=== PATIENT | male | born 1965 | race Caucasian/White ===

== ENCOUNTER 2023-07-20 09:27 | Outpatient (AMB) | payer OTHER, SELFPAY ==
[2023-07-20 09:35] VITALS: BP 138/80; PULSE 60
--- NOTE | 2023-07-20 09:35 | HO.NEPHOV ---
HPI HPI Comments History of Present Illness Details I had the privilege of seeing Major in follow-up of his hypertension. His blood pressure has been well controlled on current medication regimen. He has lost some weight and his blood sugar is very good. He remains on metformin. He does not take any nonsteroidal anti-inflammatory medications. He tries to remain well hydrated. He is on lisinopril and metoprolol. He denies any dizziness, pedal edema, chest pain, shortness of breath, paroxysmal nocturnal dyspnea, orthopnea or urinary symptoms. He feels well otherwise. [facility] Medical History (Updated 07/24/23 @ 11:46 by Sy Delgado MD) Migraines Hypertension Family History (Updated 07/20/23 @ 09:42 by Estrellita Reagan MA) Mother Hypertension Social History (Updated 07/20/23 @ 09:41 by Estrellita Reagan MA) Alcohol intake: former Patient Tobacco Use Status: Former Tobacco user Vital Signs 07/20/23 09:35 Height 5 ft 10 in BP 138/80 Blood Pressure Location Lt brachial Position Sitting Pulse 60 Pulse Source Pulse Oximeter Physical Exam Vital Signs: Last Vital Signs Pulse 60 07/20/23 09:35 BP 138/80 07/20/23 09:35 Const General: comfortable and no acute distress Orientation/consciousness: patient oriented x3 HEENT Head: Yes normocephalic Mouth: Normal oral and palatal mucosa present Eyes EOM: EOMs intact bilaterally Neck Neck: Yes supple Resp Auscultation: clear to auscultation bilaterally Cardio Jugular venous distension: no JVD Rate: regular rate GI Palpation (GI): Soft to palpation Auscultation: normal bowel sounds General: Yes no CVA tenderness Back/Spine/Pelvis Back: no CVA tenderness Skin General skin exam: no rashes or lesions noted Neuro General: patient oriented x3 and moves all extremities Extrem General: Yes no pedal edema Assessment & Plan Assessment & Plan (1) Hypertension: Code(s): I10 - Essential (primary) hypertension Qualifiers: Hypertension type: primary hypertension Qualified Code(s): I10 - Essential (primary) hypertension Plan Major has hypertension for a while and currently is on metoprolol and lisinopril. He is a diabetic. His blood sugars are fairly well controlled on metformin. He has lost some weight. He remains well hydrated and avoids nonsteroidal anti-inflammatory medications. I ordered follow-up lab work. I shall try to increase his lisinopril and wean him off metoprolol if at all possible. He is not known to have any retinopathy or proteinuria. His volume status is optimal. He should be on a low-sodium diet. He is on statins. I did not make any other changes at this time but had a long conversation about future monitoring and further management strategies. All questions were answered. Time spent retrieving data, patient encounter and recommendation 22 minutes. Orders: Orders Creatinine 07/20/23 I10 - Essential (primary) hypertension Electrolytes 07/20/23 I10 - Essential (primary) hypertension Blood Urea Nitrogen 07/20/23 I10 - Essential (primary) hypertension Calcium 07/20/23 I10 - Essential (primary) hypertension Protein Creatinine Ratio, Ur 07/20/23 I10 - Essential (primary) hypertension Coding Level of Care Code Est Pt Level 3 (15658) Diagnoses Primary hypertension I10 Hypertension type: primary hypertension
== END 2023-07-20 10:12 | disposition home or self-care (01) ==
PROVIDERS: PCP Family Medicine; Visit Provider Internal Medicine Nephrology
DX: I10 Essential (primary) hypertension (principal); E11.9 Type 2 diabetes mellitus without complications; Z79.84 Long term (current) use of oral hypoglycemic drugs
CPT/HCPCS: 99213

== ENCOUNTER → 2023-07-20 09:27 | Outpatient (BNVA) | payer OTHER, SELFPAY | PROVIDERS: PCP Family Medicine; Visit Provider Internal Medicine Nephrology ==

== ENCOUNTER 2023-08-28 10:19 | Outpatient (AMB) | payer BC, SELFPAY ==
[2023-08-28 10:32] VITALS: BP 130/70; PULSE 64; O2SAT 98; BMI 25.5
--- NOTE | 2023-08-28 10:32 | HO.NEPHOV ---
HPI HPI Comments History of Present Illness Details I had the privilege of seeing Major in follow-up of his hypertension. His blood pressure has been well controlled on current medication regimen. He has lost some weight and his blood sugar is very good. He remains on metformin. He does not take any nonsteroidal anti-inflammatory medications. He tries to remain well hydrated. He is on lisinopril and metoprolol. He denies any dizziness, pedal edema, chest pain, shortness of breath, paroxysmal nocturnal dyspnea, orthopnea or urinary symptoms. He feels well otherwise [facility] Medical History (Updated 07/24/23 @ 11:46 by Sy Delgado MD) Migraines Hypertension Surgical History (Updated 08/28/23 @ 10:37 by Estrellita Reagan MA) History of shoulder surgery History of back surgery Family History Mother Hypertension Social History Alcohol intake: former Patient Tobacco Use Status: Former Tobacco user Vital Signs 08/28/23 10:32 Height 5 ft 10 in Weight 177 lb 8 oz BMI 25.5 BP 130/70 Blood Pressure Location Rt brachial Position Sitting Pulse 64 Pulse Oximetry (%) 98 Oxygen Delivery Method Room Air Physical Exam Vital Signs: Last Vital Signs Pulse 64 08/28/23 10:32 BP 130/70 08/28/23 10:32 Pulse Ox 98 08/28/23 10:32 Oxygen Delivery Method Room Air 08/28/23 10:32 BMI result Body Mass Index 25.5 Const General: comfortable and no acute distress Orientation/consciousness: patient oriented x3 HEENT Head: Yes normocephalic Mouth: Normal oral and palatal mucosa present Eyes EOM: EOMs intact bilaterally Neck Neck: Yes supple Resp Auscultation: clear to auscultation bilaterally Cardio Jugular venous distension: no JVD Rate: regular rate GI Palpation (GI): Soft to palpation Auscultation: normal bowel sounds General: Yes no CVA tenderness Back/Spine/Pelvis Back: no CVA tenderness Skin General skin exam: no rashes or lesions noted Neuro General: patient oriented x3 and moves all extremities Extrem General: Yes no pedal edema Assessment & Plan Assessment & Plan (1) Hypertension: Code(s): I10 - Essential (primary) hypertension Qualifiers: Hypertension type: primary hypertension Qualified Code(s): I10 - Essential (primary) hypertension Plan Major has hypertension for a while and currently is on metoprolol and lisinopril. He is a diabetic. His blood sugars are fairly well controlled on metformin. He has lost some weight. He remains well hydrated and avoids nonsteroidal anti-inflammatory medications. I increased his lisinopril to 10 mg and discontinued his metoprolol . He is not known to have any retinopathy or proteinuria. His volume status is optimal. He should be on a low-sodium diet. He is on statins. I did not make any other changes at this time but had a long conversation about future monitoring and further management strategies. All questions were answered. Orders: Orders Blood Urea Nitrogen Today I10 - Essential (primary) hypertension Creatinine Today I10 - Essential (primary) hypertension Protein Creatinine Ratio, Ur Today I10 - Essential (primary) hypertension Electrolytes Today I10 - Essential (primary) hypertension Calcium Today I10 - Essential (primary) hypertension Medications: New lisinopril 10 mg PO DAILY 90 tabs 3RF Coding Level of Care Code Est Pt Level 3 (48877) Diagnoses Primary hypertension I10 Hypertension type: primary hypertension Results Reviewed Nephrology Results: No Data to Display
== END 2023-08-28 11:02 | disposition home or self-care (01) ==
PROVIDERS: PCP Family Medicine; Visit Provider Internal Medicine Nephrology
DX: I10 Essential (primary) hypertension (principal)
CPT/HCPCS: 99213

== ENCOUNTER → 2023-08-28 10:19 | Outpatient (BNVA) | payer BC, SELFPAY | PROVIDERS: PCP Family Medicine; Visit Provider Internal Medicine Nephrology ==

== ENCOUNTER 2023-10-24 13:02 | Outpatient (REF) | payer BC, SELFPAY ==
[2023-10-24 18:34] LABS: Anion Gap 11 (12-20); Blood Urea Nitrogen 21 mg/dL (9-16); Carbon Dioxide 23 mmol/L (22-29); Chloride 109 mmol/L (96-108); Estimated Glomerular Filt Rate > 60; Potassium 4.8 mmol/L (3.3-5.1); Sodium 138 mmol/L (135-145)
[2023-10-24 18:40] LABS: Creatinine Urine 177.46 mg/dL; Protein/Creatinine Ratio, Ur 0.06 (<0.2); Total Protein Urine Random 10 mg/dL (<12)
== END 2023-10-24 13:03 | disposition home or self-care (01) ==
LOC: HO.HKASLDS 13:02
PROVIDERS: Visit Provider Internal Medicine Nephrology
DX: I10 Essential (primary) hypertension (principal)
CPT/HCPCS: 36415; 80051; 82310; 82565; 82570; 84156; 84520

== ENCOUNTER 2023-10-30 10:24 | Outpatient (AMB) | payer BC, SELFPAY ==
[2023-10-30 10:32] VITALS: BP 122/80; PULSE 83; O2SAT 97; BMI 25.2
--- NOTE | 2023-10-30 10:32 | HO.NEPHOV_ITS ---
HPI HPI Comments History of Present Illness Details I had the privilege of seeing Major in follow-up of his hypertension. His blood pressure has been well controlled on current medication regimen. He has lost some weight and his blood sugar is very good. He remains on metformin. He does not take any nonsteroidal anti-inflammatory medications. He tries to remain well hydrated. He denies any dizziness, pedal edema, paroxysmal nocturnal dyspnea, orthopnea or urinary symptoms. He feels well otherwise [facility] Medical History (Updated 07/24/23 @ 11:46 by Sy Delgado MD) Migraines Hypertension Surgical History History of shoulder surgery History of back surgery Family History Mother Hypertension Social History Alcohol intake: former Patient Tobacco Use Status: Former Tobacco user Vital Signs 10/30/23 10:32 Height 5 ft 10 in Weight 175 lb 8 oz BMI 25.2 BP 122/80 Blood Pressure Location Lt brachial Position Sitting Pulse 83 Pulse Source Pulse Oximeter Pulse Oximetry (%) 97 Oxygen Delivery Method Room Air Physical Exam Vital Signs: Last Vital Signs Pulse 83 10/30/23 10:32 BP 122/80 10/30/23 10:32 Pulse Ox 97 10/30/23 10:32 Oxygen Delivery Method Room Air 10/30/23 10:32 BMI result Body Mass Index 25.2 Const General: comfortable and no acute distress Orientation/consciousness: patient oriented x3 HEENT Head: Yes normocephalic Mouth: Normal oral and palatal mucosa present Eyes EOM: EOMs intact bilaterally Neck Neck: Yes supple Resp Auscultation: clear to auscultation bilaterally Cardio Jugular venous distension: no JVD Rate: regular rate GI Palpation (GI): Soft to palpation Auscultation: normal bowel sounds General: Yes no CVA tenderness Back/Spine/Pelvis Back: no CVA tenderness Skin General skin exam: no rashes or lesions noted Neuro General: patient oriented x3 and moves all extremities Extrem General: Yes no pedal edema Assessment & Plan Assessment & Plan (1) Hypertension: Code(s): I10 - Essential (primary) hypertension Qualifiers: Hypertension type: primary hypertension Qualified Code(s): I10 - Essential (primary) hypertension Plan Major has hypertension for a while . He is a diabetic. His blood sugars are fairly well controlled on metformin. He has lost some weight. He remains well hydrated and avoids nonsteroidal anti-inflammatory medications. He could continue lisinopril 10 mg . He is not known to have any retinopathy or proteinuria. His volume status is optimal. He should be on a low-sodium diet. He is on statins. I did not make any other changes at this time but had a long conversation about future monitoring and further management strategies. All questions were answered. Orders: Orders Blood Urea Nitrogen Today I10 - Essential (primary) hypertension Creatinine Today I10 - Essential (primary) hypertension Electrolytes Today I10 - Essential (primary) hypertension Medications: New lisinopril 10 mg PO DAILY 90 days 90 tabs 3RF Coding Level of Care Code Est Pt Level 4 (45901) Diagnoses Primary hypertension I10 Hypertension type: primary hypertension Results Reviewed Nephrology Results: Sodium 138 mmol/L (135-145) 10/24/23 Potassium 4.8 mmol/L (3.3-5.1) 10/24/23 Chloride 109 mmol/L (96-108) H 10/24/23 Carbon Dioxide 23 mmol/L (22-29) 10/24/23 BUN 21 mg/dL (9-16) H 10/24/23 Creatinine 1.00 mg/dL (0.5-1.4) 10/24/23 Calcium 10.0 mg/dL (8.4-10.2) 10/24/23 Urine Creatinine 177.46 mg/dL 10/24/23 Protein/Creatinin Ratio 0.06 (<0.2) 10/24/23
== END 2023-10-30 10:57 | disposition home or self-care (01) ==
PROVIDERS: PCP Family Medicine; Visit Provider Internal Medicine Nephrology
DX: I10 Essential (primary) hypertension (principal)
CPT/HCPCS: 99214

== ENCOUNTER → 2023-10-30 10:24 | Outpatient (BNVA) | payer BC, SELFPAY | PROVIDERS: PCP Family Medicine; Visit Provider Internal Medicine Nephrology ==

== ENCOUNTER 2024-04-15 09:25 | Outpatient (AMB) | payer BC, SELFPAY ==
--- NOTE | 2024-04-15 09:36 | HO.NEPHOV_ITS ---
Vital Signs 04/15/24 09:37 Height 5 ft 10 in Weight 174 lb 8 oz BMI 25.0 BP 122/72 Blood Pressure Location Lt brachial Position Sitting Pulse 66 Pulse Source Pulse Oximeter Pulse Oximetry (%) 97 Oxygen Delivery Method Room Air Intake Visit Reasons: 6 mo fu w labs- CKD / LVM [employer] Buyer Required: No Accompanied by: Self / Same As Patient Allergies No Known Allergies Allergy (Verified 04/15/24 09:38) HPI Comments Details: I had the privilege of seeing Major in follow-up of his hypertension. His blood pressure has been well controlled on current medication regimen. He has lost some weight and his blood sugar is very good. He remains on metformin. He does not take any nonsteroidal anti-inflammatory medications. He tries to remain well hydrated. He denies any dizziness, pedal edema, paroxysmal nocturnal dyspnea, orthopnea or urinary symptoms. He feels well otherwise [facility] Medical History (Updated 07/24/23 @ 11:46 by Sy Delgado MD) Migraines Hypertension Surgical History History of shoulder surgery History of back surgery Family History Mother Hypertension Social History Alcohol intake: former Patient Tobacco Use Status: Former Tobacco user Physical Exam Vital Signs: Last Vital Signs Pulse 66 04/15/24 09:37 BP 122/72 04/15/24 09:37 Pulse Ox 97 04/15/24 09:37 Oxygen Delivery Method Room Air 04/15/24 09:37 BMI result Body Mass Index 25.0 Const General: comfortable and no acute distress Orientation/consciousness: patient oriented x3 HEENT Head: Yes normocephalic Mouth: Normal oral and palatal mucosa present Eyes EOM: EOMs intact bilaterally Neck Neck: Yes supple Resp Auscultation: clear to auscultation bilaterally Cardio Jugular venous distension: no JVD Rate: regular rate GI Palpation (GI): Soft to palpation Auscultation: normal bowel sounds General: Yes no CVA tenderness Back/Spine/Pelvis Back: no CVA tenderness Skin General skin exam: no rashes or lesions noted Neuro General: patient oriented x3 and moves all extremities Extrem General: Yes no pedal edema Results Reviewed Nephrology Results: Sodium 138 mmol/L (135-145) 10/24/23 Potassium 4.8 mmol/L (3.3-5.1) 10/24/23 Chloride 109 mmol/L (96-108) H 10/24/23 Carbon Dioxide 23 mmol/L (22-29) 10/24/23 BUN 21 mg/dL (9-16) H 10/24/23 Creatinine 1.00 mg/dL (0.5-1.4) 10/24/23 Calcium 10.0 mg/dL (8.4-10.2) 10/24/23 Urine Creatinine 177.46 mg/dL 10/24/23 Protein/Creatinin Ratio 0.06 (<0.2) 10/24/23 Assessment & Plan Assessment & Plan (1) Hypertension: Code(s): I10 - Essential (primary) hypertension Category: Medical Qualifiers: Hypertension type: primary hypertension Qualified Code(s): I10 - Essential (primary) hypertension Plan Major has hypertension . He is a diabetic. His blood sugars are fairly well controlled on metformin. He has lost some weight. He remains well hydrated and avoids nonsteroidal anti-inflammatory medications. He could continue lisinopril 10 mg . He is not known to have any retinopathy or proteinuria. His volume status is optimal. He should be on a low-sodium diet. He is on statins. I did not make any other changes at this time but had a long conversation about future monitoring and further management strategies. All questions were answered. Orders: Orders Creatinine Today I10 - Essential (primary) hypertension Blood Urea Nitrogen Today I10 - Essential (primary) hypertension Electrolytes Today I10 - Essential (primary) hypertension Protein Creatinine Ratio, Ur Today I10 - Essential (primary) hypertension Coding Level of Care Code Est Pt Level 4 (63950) Diagnoses Primary hypertension I10 Hypertension type: primary hypertension
[2024-04-15 09:37] VITALS: BP 122/72; PULSE 66; O2SAT 97; BMI 25.0
== END 2024-04-15 10:06 | disposition home or self-care (01) ==
PROVIDERS: PCP Family Medicine; Visit Provider Internal Medicine Nephrology
DX: I10 Essential (primary) hypertension (principal)
CPT/HCPCS: 99214

== ENCOUNTER → 2024-04-15 09:25 | Outpatient (BNVA) | payer BC, SELFPAY | PROVIDERS: PCP Family Medicine; Visit Provider Internal Medicine Nephrology ==

== ENCOUNTER 2025-01-29 09:15 | Outpatient (AMB) | payer BC, SELFPAY ==
--- OUTSIDE RECORDS SUMMARY | 2025-01-29 09:28 | XMS_ITS ---
Author Organization [facility] [place] Address [address] [facility] [place] [address] Care Team Providers Care Narcotics And Vice Detective Name Role Phone Xander Zavala Primary Care Provider Aditi Santillan Unavailable [phone] Allergies Allergen (clinical drug ingredient) Drug/Non Drug Allergy documented on EMR Reaction Allergy Type Onset Date Status Bee Sting Unknown Allergy Active REASON FOR VISIT Last Visit PCP 04/2024, At Risk Footcare, Skin Problem Medications Medication SIG (Take, Route, Frequency, Duration) Notes Start Date End Date Status metFORMIN HCl 500 MG 1 tablet with a onel l Orally Once a day Active Metoprolol Succinate 25 MG 1 capsule Orally Once a day Not-Taking Lisinopril 5 MG 1 tablet Orally Once a day Active Atorvastatin Calcium 20 MG 1 tablet Orally Once a day Active Ciclopirox Olamine 0.77 % 1 application Externally Twice a day to feet including between the toes for 30 days Active Social History Tobacco Use: Social History Observation Description Date Details (start date - stop date) Former Smoker NA - NA Tobacco Use/Smoking Question Answer Notes Are you a: former smoker Additional Findings: Tobacco Non-User Current no n-smoker Alcohol Screen Question Answer Notes Did you have a drink containing alcohol in the p ast year? No Points 0 Interpretation Negative Tobacco use other than smoking: Question Answer Notes Are you an other tobacco user? No Vital Signs Height 5ft 10 in in 05/22/2024 Weight 175 lbs 05/22/2024 BMI 25.11 kg/m2 05/22/2024 [facility]counters [facility] [address] [facility] Aditi Lopez Type 2 diabetes mellitus without complication, without long-term current use of insulin E11.9 ; Tinea pedis of both feet B35.3 ; Hallux valgus (acquired), left foot M20.12 and Hallux valgus (acquired), right foot M20.11 Assessments Encounter Date Diagnosis (ICD Code) Assessment Notes Treatment Notes Treatment Clinical Notes Section Notes 05/22/2024 Type 2 diabetes mellitus without complication, without long-term current use of insulin (ICD-10 - E11.9) 05/22/2024 Tinea pedis of both feet (ICD-10 - B35.3) 05/22/2024 Hallux valgus (acquired), left foot (ICD-10 - M20.12) 05/22/2024 Hallux valgus (acquired), right foot (ICD-10 - M20.11) Plan Of Treatment Medication Medication Name Sig Start Date Stop Date Notes Ciclopirox Olamine 0.77 % 1 application Externally Twice a day to feet including between the toes for 30 days Next Appt Details Follow Up: 1 Year, Reason: Provider Name:Aditi wallis, 05/21/2025 09:00:00 AM, [address] [place], [address], Progress Notes * Anthony BENITEZOB: 6 (58 yo M)Acc No.[id number]:05/22/2024 Progress Note Patient:?Major BENITEZ Provider:?Aditi Lopez DPM :1965???Age:58 Y???Sex:Male Avni e:05/22/2024 Address:[address] [place], [place] [id number] Pcp:Xander Zavala Subjective: * Chief Complaints: * ???Last Visit PCP t R isk FootcareSkin Problem * HPI: ???At Risk footcare:?Pt States Last PCP Visit:?Date?04/22/2024 ???Skin problems:?Nature:?scaling , redness.?Location:?B/L .?Course:?worse.?Treatments:?Pt states he picks at feet.? * ROS:?General/Constitutional:?Nausea?denies, denies.?Vomiting?denies, denies.?Hunger Thirst?denies, denies.?Loss appetite?denies, denies.?Chills?denies, denies.?Fatigue?denies, denies.?Fever?denies, denies.?Night Sweats denies, denies.?Unexplained weight loss?denies, denies.?Unexplained weight gain?denies, denies.?HEENTM:?Dentures?denies, denies.?Dizziness?denies, denies.?Glasses/contacts?denies, denies.?Retinopathy?denies, denies.?Blurred/double vision?denies, denies.?TMJ?denies, denies.?Discharge/drainage?denies, denies.?Implants?denies, denies.?Sore throat?denies, denies.?Dental implants?admits, admits.?Hard of hearing ?denies, denies.?Difficulty chewing/swallowing/speaking?denies, denies.?Nose bleeds?denies, denies.?Sore mouth?denies, denies.?Respiratory:?On Oxygen?denies, denies.?Pneumonia/pleurisy?denies, denies.?Bronchitis?denies, denies.?Emphysema?denies, denies.?Coughing?denies, denies.?Cough blood?denies, denies.?Shortness of breath?denies, denies.?Wheezing?denies, denies.?Cardiovascular:?Pacemaker?denies, denies.?MVP?denies, denies.?WPW?denies, denies.?CHF?denies, denies.?Heart attack?denies, denies.?Septal defect?denies, denies.?Rapid beat?denies, denies.?Chest pain ?denies, denies.?Atrial Fib.?denies, denies.?Murmur/Palpitations?denies, denies.?Gastrointestinal:?Hemorrhoids?denies, denies.?Stomach/Abdominal pain?denies, denies.?Dark blood stool?denies, denies.?Irritable bowel ?denies, denies.?Constipation?denies, denies.?Diarrhea?denies, denies.?Hematology:?Swelling?denies, denies.?Clots?denies, denies.?Varicose Veins?denies, denies.?Bruising?denies, denies.?Bleeding problem?denies, denies.?Genitourinary:?Blood urine?denies, denies.?Frequent/Painfu/urination/bladder control?denies, denies.?Kidney stones?denies, admits.?Infection (UTI)?denies, denies.?Nephropathy?denies, denies.?sex trans dis (STD)?denies, denies.?Prostate?denies, denies.?Musculoskeletal:?Hammertoes?denies, denies.?Bunions?denies, denies.?Back Pain?denies, denies.?Muscle Cramps/ Resting?denies, denies.?Muscle cramps / walking?denies, denies.?Generalized aches and pains?admits, admits.?Weakness?admits, admits.?Integ.:?Chung?denies, denies.?Scars?denies, denies.?Corns/calluses?admits, denies.?Ingrown nails?denies, denies.?Painful nails?denies, denies.?Open Sores?denies, denies.?Rashes?denies, denies.?Neurologic:?Difficulty sleeping?admits, admits.?Brain disorder?denies, denies.?Numbness?denies, admits.?Balance trouble?denies, denies.?Confusion?denies, denies.?Fainting/blackouts?denies, denies.?Tingling?admits, admits.?Tremors?denies, denies.? * Medical History:? * Surgical History:?shoulder s urgery back surgery * Hospitalization/Major Diagno stic Procedure:?[facility] ER 08/2023 * Family History:?Mother: christen gracia, foot problems, high blood pressure, poor circulation, diagnosed with Diabetic - NIDDM.?Father: .?Spouse: alive.? * Social History:?Tobacco Use:?Tobacco Use/Smoking?Are you a:?former smoker ?Additional Findings: Tobacco Non-User?Current non-smoker ?Tobacco use other than smoking?Are you an other tobacco user??No ???Drugs/Alcohol:?Drugs?Have you used drugs other than those for medical reasons in the past 12 months??No ?Alcohol Screen?Did you have a drink containing alcohol in the past year??No ?Points?0 ?Interpretation?Negative ???Miscellaneous:?Caffeine: yes, frequency: 3-4 12 oz coffee. ?Exercise: surfing, golfing. ?Marital status: . 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 * Medications:?TakingAtorvasta tin Calcium 20 MG Tablet 1 tablet Orally Once a day Lisinopril 5 MG Tablet 1 tablet Orally Once a day metFORMIN HCl 500 MG Tablet 1 tablet with a meal Orally Once a day Taking Atorvastatin Calcium 20 MG Tablet 1 tablet Orally Once a day Taking Lisinopril 5 MG Tablet 1 tablet Orally Once a day Taking metFORMIN HCl 500 MG Tablet 1 tablet with a meal Orally Once a day Not-Taking/PRNMetoprolol Succinate 25 MG Capsule ER 24 Hour Sprinkle 1 capsule Orally Once a day Medication List reviewed and reconciled with the patientNot- Taking/PRN Metoprolol Succinate 25 MG Capsule ER 24 Hour Sprinkle 1 capsule Orally Once a day Medication List reviewed and reconciled with the patient * Allergies:?Bee Stingyes[Salomon rgies Verified] Objective: * Vitals:?Ht:5ft 10 in, Wt:175 , BMI:25.11, Shoe size:10, BS:Doesn't test, Ht-cm: 177.8 cm, Wt-k.38 kg. * ???Past Orders: ???Lab:HEMOGLOBIN A1C (GLYCO HEMOGLOBIN) (Order Date - 04/21/2024) (Collection Date & Time - 04/21/2024 09:07 AM) ? Value Reference Range ?HEMOGLOBIN A1C % (HH) 6.5 * Examination: ???Ophthalmology Referral: ?DIABETES EYE EXAM?Procedure Performed:?Yes ?Date of Exam Performed?12/25/2023 ?Diabetic Retinopathy Screening:?Yes 2023 ?Findings of Diabetic Eye Exam:?no retinopathy?Neurological: ?SENSORY:?Neurological exam reveals intact sensorium, pain sensation normal, vibration sensation intact, pinprick sensation is normal in the lower extremities, Pt denies, anesthesia, burning, paresthesia, tingling, B/L.?Dermatologic: ?SKIN FINDINGS:?? Skin shows sign(s) of, erythema, scaling, in a moccasin fashion, no fissure(s) present, B/L, scabs from skin peeling, no open wounds or signs of infection.?Vascular: ?DP PULSES (B):?3/4, B/L.?PT PULSES (B):?3/4, B/L.?CAPILLARY FILL TIME:?immediate, all digits, B/L.?TROPHIC CONDITION-TEXTURE/ELASTICITY/TURGOR/HAIR GROWTH (B):?normal, B/L.?TEMPERTURE GRADIENT (C):?warm to cool, proximal to distal, B/L.?PIGMENTATION:?normal, B/L.?EDEMA (C):?absent, B/L.?General Examination: ?GENERAL APPEARANCE:?Reveals a pleasant, alert, well-nourished, well- developed, well hydrated individual, who demonstrates proper attention to hygiene/body habitus, and is in no acute distress, Pt serves as own?historian for office visit today.?ORIENTED:?person, place, and time.?FOOT EXAM:?Lower Extremity Neurological Exam performed:?Yes ?Visual exam of foot performed:?Yes ?Date?05/22/2024 ?Footwear Evaluation?Footwear Evaluation performed:?Yes?Orthopedic: ?MUSCLE STRENGTH:?5/5 all groups in a symmetrical fashion , B/L.?BUNION:? Dorso-Medially prominent 1st MPJ, B/L, Lateral tracking 1st MPJ reducible.?FOOTWEAR:?fair condition.? Assessment: * Assessment: 1.?Type 2 diabetes mellitus without complication, without long-term current use of insulin - E11.9???Specify :Chronic problem, Stable (1=3,2=4)???2.?Tinea pedis of both feet - B35.3 (Primary)???Specify :Acute problem, Uncomplicated (3),Rx drug management (4)???3.?Hallux valgus (acquired), left foot - M20.12???4.?Hallux valgus (acquired), right foot - M20.11??? Plan: * Treatment: * Procedure Codes:? * Preventive Medicine:? ??Counseling:?Tobacco use:?.?Discussion:?-13: Office or other outpatient visit for the evaluation and management of an established patient, which required a medically appropriate history and/or examination and LOW level of DECISION MAKING for: 1 STABLE ACUTE UNCOMPLICATED PROBLEM, 2 OR MORE MINOR PROBLEMS, OR 1 STABLE CHRONIC PROBLEM, THAT POSE(S) A LOW RISK FOR MORBIDITY/MORTALITY. The visit on the day of the encounter encompassed interpreting the data and educating the patient as to the nature of their condition, treatment options available according to their individual PMH, meds, allergies, and overall health/living conditions, as well as any potential risks or complications that may occur from a failure to adhere to, and participate in, the recommended course of therapy. The discussion included a complete verbal, and/or written explanation of the examination results, any x-rays taken, the proposed diagnosis, and outline of the treatment plan. A schedule for future care needs was also explained. The patient verbalized an understanding of the instructions at this time and agreed to be an active participant in their treatment. If the patient should think of any questions or concerns after the visit, I have encouraged the patient to call the office.?Diabetic Footcare:?The patient was advised against future self nail/callus care due to inherent risks for infection, loss of limb/life given diabetes.?Digital Treatment:?HV - I explained to the patient the risks/benefits of all the different treatment options for their pain including: No treatment at all, Rest, Ice, New/supportive/wider/deeper Shoegear, Digital Padding/Strapping/Taping/Bracing/Gel protective sleeves, Foot/Ankle AFO Bracing, Stretching exercises, Deep Tissue Massage, Arch support/shoe inserts with splay metatarsal padding, and Custom orthoses. I insisted that any digital devices be removed daily and not worn overnight for safety. The patient is to carefully examine the toes daily for any skin irritation while using any splinting or padding device. The advantages and disadvantages of each option were discussed and the patients questions re: shoegear, padding, custom vs prefabricated inserts, activity level, and consistency in home treatment regimens for optimal success were answered to their verbally confirmed satisfaction.?Tinea Pedis:?The patient was counseled on the diagnosis, potential etiologies, and treatment options for their skin condition. We discussed the risks and benefits of each option from performing no treatment, to utilizing OTC topical skin creams, prescription topical creams, customized compounded topical medications, and, if necessary, to utilize oral antifungal therapy. We discussed the advantages and disadvantages of each possible treatment and importance for adherence to all the recommended therapies for optimum success and avoid potential complications such as open sore/infection/possible hospitalization. We discussed the potential effectiveness of each topical preparation as well as each ones possible side effects and/or patient medication interactions if oral therapy is selected. Patient questions re: the advantages and disadvantages of each treatment choice, medication use/dosage, successful outcomes, and application consistency were reviewed and the patient verbalized that all answers were clearly understood. The patient was told they can help alleviate symptoms by utilizing moisture absorbant innersoles with activated charcoal and baking soda, applying antifungal sprays daily, aerating toe web spaces at night by putting cotton or lambs wool between the toes, alternating shoe gear daily if possible so they can dry out, changing socks at least once during the day, wearing well-ventilated shoes or sandals. The patient has decided to apply antifungal skin creams to their feet as directed. Rx was sent to their pharmacy at the time of visit.? ??Screening/Special Tests:?Fall Risk?Assessment:?Performed ?Screening:?No falls in the past year ?FALLS: Screening for Future Fall Risk?Have you had two or more falls in the past year??No ?Have you had any falls with injury in the past year??No * Follow Up:?1 Year * Images: * Sign off status: Completed true * Provider:?Aditi Lopez DPM Date:?08/2024 Generated for Debby zurita/Connor/Behzad on:?01/29/2025 09:28 AM EDT History and Physical Notes * HPI (History of Present Illness) Category Sub-Category Detail Notes Category Not es Skin problems Nature: scaling , redness Location: B/L Course: worse Treatments: Pt states he picks a t feet At Risk footcare Pt States Last PCP Visit: Date: Examination Category Sub-Category Detail Notes Category Not es Neurological SENSORY: Neurological exa m reveals intact sensorium, pain sensation normal, vibration sensation intact, pinprick sensation is normal in the lower extremities, Pt denies, anesthesia, burning, paresthesia, tingling, B/L Dermatologic SKIN FINDINGS: Skin shows sign( s) of, erythema, scaling, in a moccasin fashion, no fissure(s) present, B/L, scabs from skin peeling, no open wounds or signs of infection Orthopedic BUNION: Dorso-Medially p rominent 1st MPJ, B/L, Lateral tracking 1st MPJ reducible FOOTWEAR EVALUATION: fair condition MUSCLE STRENGTH: 5/5 all groups in a symmetrical fashion , B/L General Examination GENERAL APPEARANCE: Reveals a pleasant, alert, well- nourished, well-developed, well hydrated individual, who demonstrates proper attention to hygiene/body habitus, and is in no acute distress, Pt serves as own historian for office visit today FOOT EXAM: Lower Extremity Neurological Exa m performed:: Yes Visual exam of foot performed:: Yes Date: 05/22/2024 ORIENTED: person, place, and t jos Footwear Evaluation Footwear Evaluation performe d:: Yes Ophthalmology Referral DIABETES EYE EXAM Procedure Perform ed:: Yes ?Date of Exam Performed: 12/25/2023 Diabetic Retinopathy Screening:: Yes Findings of Diabetic Eye Exam:: no retin opathy Vascular DP PULSES (B): 3/4, B/L PT PULSES (B): 3/4, B/L CAPILLARY FILL TIME: immediate, all digi ts, B/L TEMPERTURE GRADIENT (C): warm to cool, p roximal to distal, B/L TROPHIC CONDITION-TEXTURE/ELASTICITY/TURGOR/HAIR GROWTH (B): normal, B/L EDEMA (C): absent, B/L PIGMENTATION: normal, B/L
--- OUTSIDE RECORDS SUMMARY | 2025-01-29 09:28 | XMS_ITS | Clinical Summary ---
[facility] Address [address] [place] [address] Care Team Providers Care Fishing Guide Name Role Phone Donald Anguiano MD Primary Care Provider [phone] Allergies No known active allergies Medications Medication Sig Dispensed Refills Start Date End Date Status atorvastatin (LIPITOR) tablet 20 mg Take 20 mg by mouth daily. 0 08/26/2020 Active metFORMIN (GLUCOPHAGE-XR) ER 24 hr tablet 500 mg TAKE 1 TAB BY MOUTH DAILY EACH MORNING FOR 30 DAYS 0 07/31/2020 Active metoprolol succinate (TOPROL-XL) 24 hr tablet 25 mg Take 25 mg by mouth. 0 08/31/2020 Active naproxen (NAPROSYN) 500 MG tablet TAKE 1 TAB BY MOUTH 2 TIMES DAILY WITH MEALS NEEDED FOR PAIN 0 07/14/2020 Active Active Problems Problem Noted Date Diagnosed Date Shoulder weakness 06/09/2021 Adhesive capsulitis of right shoulder associated with type 2 diabetes mellitus 09/24/2020 Impingement syndrome of right shoulder Social History Tobacco Use Types Packs/Day Years Used Date Smoking Tobacco: Never Assessed Sex and Gender Information Value Date Recorded Sex Assigned at Not on file Gender Identity Not on file Sexual Orientation Not on file Job Start Date Occupation Industry Not on file Not on file Not on file Last Filed Vital Signs Vital Sign Reading Time Taken Comments Blood Pressure - - Pulse - - Temperature - - Respiratory Rate - - Oxygen Saturation - - Inhaled Oxygen Concentration - - Weight 74.8 kg (165 lb) 11/08/2021 9:27 AM EST Height 177.8 cm (5' 10 ) 11/08/2021 9:27 AM EST Body Mass Index 23.68 11/08/2021 9:27 AM EST Plan of Treatment Health Maintenance Due Date Last Done Comments Hepatitis B Vaccines (1 of 3 - 3-dose series) 1965 Hepatitis C Screening 1965 Pneumococcal Vaccine (1 of 2 - PCV) 12/15/1971 Depression Screening 1977 Preventative Health Evaluation 12/15/1983 Colon Cancer Screening (Colonoscopy) 2010 Shingrix-Zoster Vaccine (1 o f 2) 12/15/2015 COVID-19 Vaccine (3 - 2023-2 5 season) 2024 12/19/2020, 11/28/2020 Influenza Vaccine (#1) 2024 , 05/21/2019 DTap / Tdap / Td (2 - Td or Tdap) 04/08/2025 04/08/2015 RSV Ped < 20 months Aged Out No longe r eligible based on patient's age to complete this topic Care Teams Fishing Guide Relationship Specialty Start Date End Date Donald Anguiano MD [address] [place] [address] PCP - General Internal Medicine 07/15/20
--- OUTSIDE RECORDS SUMMARY | 2025-01-29 09:29 | XMS_ITS ---
Author Organization [facility] Address [address] [place] [address] Care Team Providers Care Lead Miner Blasting Name Role Phone Xander Zavala Primary Care Provider Aditi Santillan [phone] Smith Encounters Encounter Location Date Provider Diagnosis [facility] [address] [place] [address] 05/08/2024 Aditi Lopez Plan Of Treatment Next Appt Details Provider Name:Aditi wallis, 05/21/2025 09:00:00 AM, [address] [place], [address], Progress Notes * Anthony BENITEZOB: 6 (59 yo M)Acc No.[id number]:05/08/2024 Progress Note Patient:?Major BENITEZ Provider:?Aditi Lopez DPM :1965???Age:58 Y???Sex:Male Avni e:05/08/2024 Address:[address] [place] [address] Pcp:Xander Zavala Subjective: * Chief Complaints: * ???1. Dr Smith. * Medical History:? Objective: * Vitals:? Assessment: Plan: * Treatment: * Images: * The named appointment provid er may or may not be the originator of this progress note, and it is not deemed complete until electronically signed by the appointment provider. Sign off status: Pending * Provider:?Aditi Lopez DPM Date:? Generated for Debby zurita/Connor/Behzad on:?01/29/2025 09:28 AM EDT
--- OUTSIDE RECORDS SUMMARY | 2025-01-29 09:29 | XMS_ITS | Clinical Summary ---
Author Organization [address] [place] [address] [place] [phone] Phone Care Team Providers Care Forming Fixer Name Role Phone CalvinJeny leone Primary Care Provider [phone] Allergies No known active allergies Medications aspirin 81 mg capsule Take 81 mg by mouth. 08/31/20 Active sildenafiL (VIAGRA) 50 mg tablet See Instructions, 50 mg tablt. take 1 tablet 30 minutes before intercourse, 0 Refills, Maintenance, 07/16/23 16:43:00 EST, Partial fill upon patient request if the prescription is for a schedule II opioid drug. 07/16/20 23 Active SUMAtriptan (IMITREX) 50 mg tablet Active lisinopriL (PRINIVIL,ZESTRIL ) 10 mg tablet Take 1 tablet (10 mg total) by mouth 1 (one) time each day. for 90 days Active fluticasone propionate (FLONASE) 50 mcg/actuation nasal spray Administer 2 sprays into affected nostril(s) 1 (one) time each day. Active atorvastatin (LIPITOR) 20 mg tabletIndications :Hyperlipidemia, unspecified TAKE 1 TABLET BY MOUTH EVERY DAY 90 tablet 1 11/20/19 25 Active metFORMIN XR (GLUCOPHAGE-XR) 500 mg 24 hr tabletIndications :Type 2 diabetes mellitus without complications (CMS/HCC V24, CMS/HCC V28) TAKE 1 TABLET BY MOUTH TWICE A DAY WITH FOOD 180 tablet 1 11/20/19 25 Active bisacodyL (DULCOLAX) 5 mg EC tablet Take 2 tablets by mouth right before beginning bowel prep. See instructions provided by the office 2 tablet 12/04/19 25 Active polyethylene glycol (Golytely) 236-22.74-6.74 -5.86 gram solution Take 4L by mouth once for one dose. May substitue any PEG. Starting at 6PM the night before your procedure drink 1 8oz glasses at your own pace until you complete half of the gallon. Finish 2nd half of the gallon 5 hours before your procedure. 4000 mL 12/04/19 25 Active albuterol HFA (PROAIR HFA ; PROVENTIL HFA ; VENTOLIN HFA) 90 mcg/actuation inhaler Inhale 2 puffs by mouth every 6 (six) hours if needed for wheezing. 6.7 g 11 12/20/19 25 026 Active escitalopram (LEXAPRO) 5 mg tablet Take 1 tablet (5 mg total) by mouth 1 (one) time each day. 90 tablet 01/13/20 25 Active escitalopram (LEXAPRO) 5 mg tablet Take 1 tablet (5 mg total) by mouth 1 (one) time each day. 10/10/19 25 025 Discontin ued(Reord er) Active Problems Problem Noted Date Diagnosed Date Illness anxiety disorder 04/09/2024 Migraine 11/16/2020 Hyperlipidemia 12/31/2018 Type 2 diabetes mellitus wit hout complication, without long-term current use of insulin ([facility] V24, [facility] V28) 12/31/2018 Essential hypertension 10/26/2017 Overview (10/07/2024): Dr. Delgado (Nephrology) - 10/23/17 - 24 hour blood pressure monitor ordered, follow-up in a few weeks 12/10/17 - 24 hour blood pressure monitor shows uncontrolled blood pressure, low sodium DASH diet recommended, smoking cessation; metoprolol succinate 25 mg daily 03/21/18 - blood pressure at goal, continue metoprolol 03/27/19 - low sodium DASH diet, continue metoprolol 04/01/2020 - smoking cessation recommended Encounters Date Type Department Care Team Description 01/12/2025 9:00 AM EDT Ancillary Procedure Pulmonol - [address] [place] [address] Chronic bronchitis, unspecified chronic bronchitis type ([facility]/HCC V24, CMS/HCC V28) 12/19/2024 11:00 AM EDT Consult Pulmonolgy - [place] [address] [address] Lucio Cahrles MD Chronic bronchitis, unspecified chronic bronchitis type ([facility]/HCC V24, CMS/HCC V28) (Primary Dx); Chronic cough 12/10/2024 Telephone Gastroenterology - [place] [address] [address] Chris Larose MD special procedure 11/07/2024 6:45 AM EST - 11/07/2024 11:59 PM EST Hospital Encounter [facility] CT Scan [address] [place] [phone] Encounter for screening for malignant neoplasm of respiratory organs; Personal history of nicotine dependence Discharge Disposition: Home or Self Care from Last 3 Months Immunizations Name Administration Dates Next Due Influenza Quadravalent, MDCK , 0.5ml, preservative free (Flucelvax) 6mo and older 06/09/2022,06/06/2021,05/21/2019 Influenza Quadrivalent, 0.5m l, preservative free (Fluarix; FluLaval; Fluzone) ages 6mo and older (Afluria) 3yo and older 06/18/2023,07/01/2020 Influenza trivalent, MDCK, 0 .5mL, preservative free (Flucelvax) 6mo and older 05/22/2024 Influenza, Unspecified 06/10/2020,06/10/2020 Pfizer (ages 12 & older) Bivalent, COVID-19 05/2023 Pfizer SARS-CoV-2 COVID-19, mRNA, LNP-S, preservative free 08/16/2021 Pneumococcal conjugate 20 va lent (Prevnar 20, PCV 20) 2mo and older 10/10/2024 Pneumococcal polysaccharide 23 valent (Pneumovax 23) 2yo and older 06/09/2022 Tdap Tetanus diptheria acell ular pertussis (Boostrix; Adacel) 7yo and older 04/08/2015 Zoster recombinant (Shingrix ) 19yo and older 08/24/2023,06/22/2023 Surgical History Surgery Date Site/Laterality Comments OTHER SURGICAL HISTORY 01/23/2019 PROCEDURE: ---- OTHER ----; COMMENT: Lumbar surgery SHOULDER SURGERY 12/2020 Right PROCEDURE: HISTORICAL SHOULDER SURGERY Medical History Medical History Date Comments Tobacco abuse 04/08/2015 DX:Tobacco abuse Family History Medical History Relation Name Comments Hypertension Brother Seizures Father Hypertension Mother No Known Problems Son Coronary artery disease Neg Hx Diabetes Neg Hx Other cancer Neg Hx Relation Name Status Comments Brother Alive Father (Age 48) Epilepsy Mother Alive HTN Son Alive Healthy Social History Tobacco Use Types Packs/Day Years Used Date Smoking Tobacco: Former Cigarettes Q uit: 06/10/2022 Smokeless Tobacco: Never Alcohol Use Standard Drinks/Week Comments No 0 (1 standard drink = 0.6 oz pur e alcohol) Sex and Gender Information Value Date Recorded Sex Assigned at Not on file Legal Sex Male 12:39 AM EST Gender Identity Not on file Sexual Orientation Not on file Obstetrics History Last Filed Vital Signs Vital Sign Reading Time Taken Comments Blood Pressure 126/80 12/19/2024 11:18 AM EDT Pulse 83 12/19/2024 11:18 AM EDT Temperature 36.2 ??C (97.1 ??F) 12/19/2024 11:18 AM E DT Respiratory Rate 20 12/19/2024 11:18 AM EDT Oxygen Saturation 97% 12/19/2024 11:18 AM EDT Inhaled Oxygen Concentration - - Weight 85.8 kg (189 lb 3.2 oz) 12/19/2024 11:18 AM EDT Height 177.8 cm (5' 10 ) 12/19/2024 11:18 AM EDT Body Mass Index 27.15 12/19/2024 11:18 AM EDT Plan of Treatment Upcoming Encounters Date Type Department Care Team (Late st Contact Info) Description 02/19/2025 9:45 AM EDT [facility] [address] [place] [address] Jeny May DO [address] [place] [address] 03/25/2025 8:30 AM EDT [facility] [address] [place] [address] Lucio Charles MD [address] [facility] [address] [place] [address] Health Maintenance Due Date Last Done Comments Diabetes: Annual Foot Exam 12/15/1975 Diabetes: Annual Retina Eye Exam 12/15/1975 Hepatitis B Vaccines (1 of 3 - 19+ 3-dose series) 1984 Colorectal Cancer Screening: Stool Based Tests (FOBT/FIT) 08/13/2022 Depression Screening 08/13/2022 HIV Screening 08/13/2022 Hepatitis C Screening 08/13/2022 Social Influencers of Health Screening 08/13/2022 Diabetes: Blood Sugar Control Test (HGBA1C) 04/05/2025 10/06/2024, 04/09/2024 DTaP,Tdap,and Td Vaccines (2 - Td or Tdap) 04/08/2025 04/08/2015 Diabetes: Annual GFR (Glomerular Filtration Rate) 10/06/2025 10/06/2024, 08/05/2024 Hypertension/CHF/CAD Annual BMP Blood Test 10/06/2025 10/06/2024, 08/05/2024 Diabetes: Annual Urine Albumin-Creatinine Ratio (uACR) 10/14/2025 10/14/2024 Lung Cancer Screening (Low Dose CT) 11/07/2025 11/07/2024, 11/05/2023, 10/16/2022 Cholesterol Screening (Lipid Panel) 10/06/2029 10/06/2024 RSV Immunization Adult Patients (1 - 1-dose 75+ series) 2040 Zoster Vaccines Completed 08/24/2023, 06/22/2023 COVID-19 Vaccine Completed 05/22/2024, 05/2023, 08/12/2022, Additional history exists Influenza Vaccine Completed 05/22/2024, , 06/09/2022, Additional history exists Pneumococcal Vaccine: 50+ Years Completed 10/10/2024, 06/09/2022 Pneumococcal Vaccine: Pediatrics (0 to 5 Years) and At-Risk Patients (6 to 64 Years) Completed 10/10/2024, 06/09/2022 HIB Vaccines Aged Out No longer eligi ble based on patient's age to complete this topic HPV Vaccines Aged Out No longer eligi ble based on patient's age to complete this topic Hepatitis A Vaccines Aged Out No long er eligible based on patient's age to complete this topic IPV Vaccines Aged Out No longer eligi ble based on patient's age to complete this topic MMR Vaccines Aged Out No longer eligi ble based on patient's age to complete this topic Meningococcal ACWY Vaccine Aged Out N o longer eligible based on patient's age to complete this topic Meningococcal B Vaccine Aged Out No l onger eligible based on patient's age to complete this topic RSV Immunization Patients Under 20 months Aged Out No longer eligible based on patient's age to complete this topic Varicella Vaccines Aged Out No longer eligible based on patient's age to complete this topic Procedures Procedure Name Priority Date/Time Associated Diagnosis Comments PULMONARY FUNCTION TESTING Routine 01/12/2025 9:10 AM EDT Chronic bronchitis, unspecified chronic bronchitis type ([facility] V24, [facility] V28) CT LUNG SCREENING Routine 11/07/2024 7:2 2 AM EST Encounter for screening for malignant neoplasm of respiratory organs Personal history of nicotine dependence MICROALBUMIN CREATININE URINE RATIO Routine 10/14/2024 1:03 PM EST Type 2 diabetes mellitus without complication, without long-term current use of insulin ([facility] V24, CMS/[facility] V28) COMPREHENSIVE METABOLIC PANEL Routine 10/06/2024 9:24 AM EST Mixed hyperlipidemia HEMOGLOBIN A1C Routine 10/06/2024 9:24 AM EST Mixed hyperlipidemia LIPID PANEL WITH REFLEX TO DIRECT LDL Routine 10/06/2024 9:24 AM EST Mixed hyperlipidemia from Last 3 Months or Most Recently Relevant to Health Maintenance Results * Pulmonary function testing: Spirometry with Bronchodilator, Carbon Monoxide Diffusing Capacity, Nitric Oxide Gas Determination (01/12/2025 9:10 AM EDT) Impressions Rabia Basurto MD - 01/12/2025 9:10 AM EDT FEV1/FVC 65%. FEV1 2.65 at 73%. FVC 85%. No bronchodilator response. TLC 104%. RV 148%. DLCO 59% (adjusted 61%). Mild obstruction with air trapping. ??No restriction. ??And mild decrease in diffusion. Finding consistent with mild obstructive lung disease. us Lucio Charles MD PFT ORDERABLES Final Result * CT Lung Screening (11/07/2024 7:22 AM EST) Anatomical Region Laterality Modality Chest Computed Tomogra phy 11/11/2024 8:33 AM EST Impressions 11/11/2024 8:42 AM EST Impression: No suspicious developing pulmonary nodule. No significant change. Lung-RADS Category: ??Lung-RADS 2: Nodule(s) with benign appearance or behavior. Continue annual screening with Low Dose Chest CT in 12 months. [employer] [place] ([id number]) -------- FINAL REPORT -------- Dictated By: Sandra Sharma Dictated Date: 11/11/2024 08:33 ET Assigned Physician: Sandra Sharma Reviewed and Electronically Signed By: Sandra Sharma Signed Date: 11/11/2024 08:42 ET Workstation ID: [id number] Transcribed By: Self Edit Transcribed Date: 11/11/2024 08:33 ET Narrative 11/11/2024 8:42 AM EST History: ??58 year-old greater than 20 pack-year current smoker, asymptomatic, for lung cancer screening. Comparison: 11/04/23 Technique: Helical volumetric imaging of the thorax was performed, using low- dose technique, without IV contrast. DLP: 179.14 mGy/cm ??CTDIvol: 4.83 mGy [employer] VCT Iterative reconstruction technique Findings: Lungs and Airways: The trachea and central bronchial tree remain patent. Diffuse bronchial wall thickening is again seen, consistent with bronchitis in this setting. Patchy centrilobular emphysema is noted. A 5 mm solid, noncalcified nodule is unchanged in the right upper lobe (image 89 series 3). No suspicious developing nodule is seen. Pleura: No pleural or pericardial effusions are seen. Base of neck, mediastinum and heart: The heart remains normal in size. Moderate coronary artery calcification is noted. No developing thoracic lymphadenopathy is seen. Soft tissues: The overlying soft tissues are unremarkable. Abdomen: This study was performed without contrast and with lower than standard dose. These factors reduce the sensitivity for detection of small lesions in the upper abdomen. Diffuse thinning of the renal parenchyma is partially imaged at the upper pole of the left kidney, unchanged. Procedure Note Sandra Sharma MD - 11/11/2024 History: 58 year-old greater than 20 pack-year current smoker,asymptomatic, for lung cancer screening. Comparison: 11/04/23 Technique: Helical volumetric imaging of the thorax was performed, usinglow-dose technique, without IV contrast. DLP: 179.14 mGy/cm CTDIvol: 4.83 mGy [employer] VCT Iterative reconstruction technique Findings: Lungs and Airways: The trachea and central bronchial tree remain patent.Diffuse bronchial wall thickening is again seen, consistent withbronchitis in this setting. Patchy centrilobular emphysema is noted. A 5 mm solid, noncalcified nodule is unchanged in the right upper lobe(image 89 series 3). No suspicious developing nodule is seen. Pleura: No pleural or pericardial effusions are seen. Base of neck, mediastinum and heart: The heart remains normal in size.Moderate coronary artery calcification is noted. No developing thoraciclymphadenopathy is seen. Soft tissues: The overlying soft tissues are unremarkable. Abdomen: This study was performed without contrast and with lower thanstandard dose. These factors reduce the sensitivity for detection of smalllesions in the upper abdomen. Diffuse thinning of the renal parenchyma ispartially imaged at the upper pole of the left kidney, unchanged. IMPRESSION: Impression: No suspicious developing pulmonary nodule. No significant change. Lung-RADS Category: Lung-RADS 2: Nodule(s) with benign appearance orbehavior. Continue annual screening with Low Dose Chest CT in 12 months. [employer] [place] ([id number]) -------- FINAL REPORT -------- Dictated By: Sandra Sharma Dictated Date: 11/11/2024 08:33 ET Assigned Physician: Sandra Sharma Reviewed and Electronically Signed By: Sandra Sharma Signed Date: 11/11/2024 08:42 ET Workstation ID: [id number] Transcribed By: Self Edit Transcribed Date: 11/11/2024 08:33 ET Isatu Guadarrama MD IMG CT PROCEDURES Final Result * Microalbumin creatinine urine ratio (10/14/2024 1:03 PM EST) Creatinine, Urine 160.0 mg/dL LAB CHEMISTRY METHOD 10/14/2024 4:40 PM EST [facility] Microalb, Ur 11.2 0.0 - 29.0 mg/L LAB CHEMISTRY METHOD 10/14/2024 4:40 PM EST [facility] Microalb/Creat Ratio 7 <30 mg/g creat LAB CHEMISTRY METHOD 10/14/2024 4:40 PM EST [facility] Urine Urine specimen obtained by clean catch procedure / Unknown Non-blood Collection / Unknown 10/14/2024 1:03 PM EST 10/14/2024 1:03 PM EST [facility] URINE ORDERABLES Fi nal Result [facility] [address] [place] [address], * Lipid panel with reflex to direct LDL (10/06/2024 9:24 AM EST) Cholesterol 166 0 - 200 mg/dL LAB CHEMISTRY METHOD 10/06/2024 3:29 PM EST [facility] Triglycerides 79 0 - 150 mg/dL LAB CHEMISTRY METHOD 10/06/2024 3:29 PM EST [facility] HDL 55 >=40 mg/dL LAB CHEMISTRY METHOD 10/06/2024 3:29 PM EST [facility] LDL Calculated 95 0 - 100 mg/dL LAB CHEMISTRY METHOD 10/06/2024 3:29 PM [facility] VLDL Cholesterol Angelo 15.8 mg/dL LAB CHEMISTRY METHOD 10/06/2024 3:29 PM [facility] Non HDL Chol. (LDL+VLDL) 111 <145 mg/dL LAB CHEMISTRY METHOD 10/06/2024 3:29 PM [facility] Chol/HDL Ratio 3.0 0.0 - 4.4 LAB CHEMISTRY METHOD 10/06/2024 3:29 PM [facility] Blood Venous blood specimen / Unknown Venipuncture / Unknown 10/06/2024 9:24 AM EST 10/06/2024 9:24 AM EST [facility] BLOOD ORDERABLES Fi nal Result Performing Organization Address City/[facility]/ZIP Co de Phone Number [facility] [address] [place] [address], [place] [phone] * (ABNORMAL) Hemoglobin A1c (10/06/2024 9:24 AM EST) Hemoglobin A1C 6.9(H) <6.5 % LAB CHEMISTRY METHOD 10/06/2024 1:56 PM [facility] Mean Bld Glu Estim. 151 mg/dL LAB CHEMISTRY METHOD 10/06/2024 1:56 PM [facility] Blood Venous blood specimen / Unknown Venipuncture / Unknown 10/06/2024 9:24 AM EST 10/06/2024 9:24 AM EST us [facility] BLOOD ORDERABLES Fi nal Result Performing Organization Address City/[facility]/ZIP Co de Phone Number [facility] [address] [place] [address], [place] [phone] * (ABNORMAL) Comprehensive metabolic panel (10/06/2024 9:24 AM EST) Sodium 136 133 - 145 mmol/L LAB CHEMISTRY METHOD 10/06/2024 3:29 PM [facility] Potassium 4.8 3.5 - 5.5 mmol/L LAB CHEMISTRY METHOD 10/06/2024 3:29 PM [facility] Chloride 106 96 - 110 mmol/L LAB CHEMISTRY METHOD 10/06/2024 3:29 PM [facility] CO2 26 21 - 32 mmol/L LAB CHEMISTRY METHOD 10/06/2024 3:29 PM [facility] Anion Gap 4 3 - 11 LAB CHEMISTRY METHOD 10/06/2024 3:29 PM [facility] Glucose 209(H) 70 - 100 mg/dL LAB CHEMISTRY METHOD 10/06/2024 3:29 PM [facility] BUN 17 5 - 25 mg/dL LAB CHEMISTRY METHOD 10/06/2024 3:29 PM [facility] Creatinine 0.99 0.70 - 1.30 mg/dL LAB CHEMISTRY METHOD 10/06/2024 3:29 PM [facility] eGFR 88 >=60 mL/min/1. 73m2 LAB CHEMISTRY METHOD 10/06/2024 3:29 PM [facility] Comment:Calculation based on the??Chronic Kidney Disease Epidemiology Collaboration (CKD-EPI) equation refit??without adjustment for race. BUN/Creatinine Ratio 17.2 LAB CHEMISTRY METHOD 10/06/2024 3:29 PM [facility] Calcium 9.7 8.5 - 10.5 mg/dL LAB CHEMISTRY METHOD 10/06/2024 3:29 PM [facility] AST (SGOT) 18 10 - 42 unit/L LAB CHEMISTRY METHOD 10/06/2024 3:29 PM [facility] ALT (SGPT) 34 10 - 60 unit/L LAB CHEMISTRY METHOD 10/06/2024 3:29 PM [facility] Alkaline Phosphatase 49 42 - 121 unit/L LAB CHEMISTRY METHOD 10/06/2024 3:29 PM EST [facility] Total Protein 7.0 6.0 - 8.0 g/dL LAB CHEMISTRY METHOD 10/06/2024 3:29 PM EST [facility] Albumin 4.2 3.2 - 5.0 g/dL LAB CHEMISTRY METHOD 10/06/2024 3:29 PM EST [facility] Total Bilirubin 1.2 0.0 - 1.4 mg/dL LAB CHEMISTRY METHOD 10/06/2024 3:29 PM EST [facility] Blood Venous blood specimen / Unknown Venipuncture / Unknown 10/06/2024 9:24 AM EST 10/06/2024 9:24 AM EST us [facility] BLOOD ORDERABLES nal Result [facility] [address] [place] [address], from Last 3 Months or Most Recently Relevant to Health Maintenance Insurance 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 Health Care Decision (hx) 01/27/2019 AD MARIE DIRECTIVE Health Care Decision (hx) 01/27/2019 AD MARIE DIRECTIVE Health Care Decision (hx) 01/27/2019 AD MARIE DIRECTIVE Health Care Decision (hx) 01/27/2019 AD MARIE DIRECTIVE Health Care Decision (hx) 01/27/2019 AD MARIE DIRECTIVE Health Care Decision (hx) 01/27/2019 AD MARIE DIRECTIVE Health Care Decision (hx) 01/24/2019 AD MARIE DIRECTIVE Health Care Decision (hx) 01/24/2019 AD MARIE DIRECTIVE Health Care Decision (hx) 01/24/2019 AD MARIE DIRECTIVE Health Care Decision (hx) 01/24/2019 AD MARIE DIRECTIVE Health Care Decision (hx) 01/24/2019 AD MARIE DIRECTIVE Health Care Decision (hx) 01/24/2019 AD MARIE DIRECTIVE Care Teams Forming Fixer Relationship Specialty Start Date End Date Jeny May DO [address] [place] [phone] PCP - General Internal Medicine 07/14/24
--- OUTSIDE RECORDS SUMMARY | 2025-01-29 09:29 | XMS_ITS | Clinical Summary ---
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 06/09/2021 Active metoprolol succinate XL (TOPROL XL) 25 MG 24 hr tablet TAKE 1 TABLET (25 MG TOTAL) BY MOUTH 1 (ONE) TIME EACH DAY DO NOT CRUSH OR CHEW. 90 tablet 3 09/05/2022 Active lisinopril 5 MG tablet Take 1 tablet (5 mg total) by mouth 1 (one) time each day 30 tablet 11 03/12/2023 Active Active Problems Problem Noted Date Diagnosed Date Hypo-osmolality and hyponatremia 03/12/2023 Hypertension 07/05/2021 Essential hypertension 10/26/2017 Overview (03/30/2021): Dr. Delgado (Nephrology) - 10/23/17 - 24 hour blood pressure monitor ordered, follow-up in a few weeks 12/10/17 - 24 hour blood pressure monitor shows uncontrolled blood pressure, low sodium DASH diet recommended, smoking cessation; metoprolol succinate 25 mg daily 03/21/18 - blood pressure at goal, continue metoprolol 03/27/19 - low sodium DASH diet, continue metoprolol 04/01/2020 - smoking cessation recommended Resolved Problems Problem Noted Date Diagnosed Date Resolved Date Shoulder girdle weakness 06/09/2021 Labile hypertension due to b eing in a clinical environment 03/30/2021 03/30/2021 Migraine 11/16/2020 07/05/2021 Adhesive capsulitis of shoulder 09/24/2020 03/30/2021 Impingement syndrome of right shoulder 09/24/2020 03/30/2021 Prolapsed lumbar intervertebral disc 01/22/2019 03/30/2021 Overview (03/30/2021): Dr. Hatfield 01/16/2019 - right L4-L5 minimally invasive discectomy to be scheduled Hyperlipidemia 12/31/2018 03/30/2021 Type 2 diabetes mellitus without complication 01/01/2003/30/2021 Right inguinal hernia 05/13/20152020 Blood urate above reference range 04/15/2015 03/30/2021 Overview (03/30/2021): Asympatomatic Bilirubin level above reference range 04/15/2015 03/30/2021 Tobacco user 04/08/2015 03/30/2021 Immunizations Immunization Administration Dates Next Due Influenza, MDCK, PF, Quadrivalent 06/06/2021,07/2019 Influenza, Unspecified 06/10/2020 Pfizer SARS-COV-2 12/19/2020,11/28/2020 Tdap 04/08/2015 Family History Medical History Relation Comments Hypertension Mother Hypertension Sibling Relation Status Comments Father Mother Alive Sibling Social History Tobacco Use Types Packs/Day Years Used Date Smoking Tobacco: Former Cigarettes 1 7.3 S tarted: 10/23/2017 Smokeless Tobacco: Never Tobacco Cessation:Counseling Given: Not Answered Alcohol Use Standard Drinks/Week Comments Not Currently 0 (1 standard drink = 0.6 oz pure alcohol) Alcoholic Drinks/day: 1-2 drinks per day Sex and Gender Information Value Date Recorded Sex Assigned at Not on file Legal Sex Male 4:50 PM EST Gender Identity Not on file Sexual Orientation Not on file Last Filed Vital Signs Vital Sign Reading Time Taken Comments Blood Pressure 130/68 03/12/2023 3:54 PM EDT Pulse 70 03/12/2023 3:54 PM EDT Temperature - - Respiratory Rate - - Oxygen Saturation 97% 03/12/2023 3:54 PM EDT Inhaled Oxygen Concentration - - Weight 78.5 kg (173 lb) 03/12/2023 3:54 PM EDT Height 175.3 cm (5' 9 ) 03/12/2023 3:54 PM EDT Body Mass Index 25.55 03/12/2023 3:54 PM EDT Plan of Treatment Health Maintenance Due Date Last Done Comments Hepatitis B Vaccine (1 of 3 - 19+ 3-dose series) 1984 Colorectal Cancer Screening: Annual FOBT 2014 Colorectal Cancer Screening: Colonoscopy 2014 Colorectal Cancer Screening: Sigmoidoscopy 2014 Pneumococcal Vaccine: 50+ Ye ars (2 of 2 - PCV) 06/09/2023 06/09/2022, 06/09/2022 Influenza Vaccine (Season Ended) 2025 06/09/2022, 06/09/2022, 06/06/2021, Additional history exists Pneumococcal Vaccine: Peds ( 0 to 5 Years) and At-Risk Patients (6 to 49 Years) Discontinued 06/09/2022, 06/09/2022
--- OUTSIDE RECORDS SUMMARY | 2025-01-29 09:29 | XMS_ITS | Patient Health Record ---
[facility] Address [address] [place] [address] Care Team Providers Care Hydrogeology Professor Name Role Phone Xander Zavala Primary Care Provider Aditi Santillan Unavailable [phone] Allergies Allergen (clinical drug ingredient) Drug/Non Drug Allergy documented on EMR Reaction Allergy Type Onset Date Status Bee Sting Unknown Allergy Active Results Component Value Reference Range Notes HEMOGLOBIN A1C (GLYCOHEMOGLO BIN) Reviewed date:05/22/2024 09:08:56 AM Interpretation: Performing Lab: Notes/Report: HEMOGLOBIN A1C % (HH) 6.5 Reason For Referral No Information Medications Medication SIG (Take, Route, Frequency, Duration) [...] between the toes for 30 days Active Immunizations Vaccine Route Administration Date Status Comme nts Influenza Unknown 05/26/2022 Administered Social History Tobacco Use: Social History Observation [...] Are you an other tobacco user? No Problems Problem Type SNOMED Code ICD Code Onset Dates Problem Status W/U Status Risk Notes Problem [id number] Hallux valgus (acquired), left foot (M20.12) Active confirmed Problem 102324663320615 Hallux valgus (acquired), right foot (M20.11) Active confirmed Problem [id number] Type 2 diabetes mellitus without complication, without long-term current use of insulin (E11.9) Active confirmed Vital Signs Height 5ft 10 in in 05/22/2024 Weight 175 lbs 05/22/2024 BMI 25.11 kg/m2 05/22/2024 Encounters Encounter Location Date Provider Diagnosis [facility] [place] [address] [place] [address] 05/22/2024 Aditi Lopez Type 2 diabetes mellitus [...] foot (ICD-10 - M20.11) Plan Of Treatment Next Appt Details Provider Name:Aditi wallis, 05/21/2025 09:00:00 AM, [address] [place], [address], Insurance Providers Payer Name Payer Address Payer Phone Subscriber Number Group Number Insured Name Patient Relationship to Insured Coverage Start Date Coverage End Date Joanna [facility] [employer] [address] [place] [address] [id number] Major Rico Self - patient is the insured Medical (General) History Medical History History ICD Code type II diabetes Chicken pox Headaches/Migraines High blood pressure Lyme disease Sciatica Surgical History Surgery Date(Month/Year) shoulder surgery back surgery Hospitalization History Reason Date(Month/Year) [facility] 08/2023
--- OUTSIDE RECORDS SUMMARY | 2025-01-29 09:29 | XMS_ITS ---
Author Organization [facility] Address [address] [place] [address] Care Team Providers Care Bee Worker Name Role Phone Xander Zavala Primary Care Provider Aditi Santillan [phone] Encounters Encounter Location Date Provider Diagnosis [facility] [address] [place] [address] 05/19/2024 Aditi Lopez Plan Of Treatment Next Appt Details Provider Name:Aditi wallis, 05/21/2025 09:00:00 AM, [address] [place], [address], Progress Notes * Anthony BENITEZOB: 6 (59 yo M)Acc No.[id number]:05/19/2024 Progress Note Patient:?Major BENITEZ Provider:?Aditi Lopez DPM :1965???Age:58 Y???Sex:Male Avni e:05/19/2024 Address:[address] [place] [address] Pcp:Xander Zavala Subjective: * Chief Complaints: * ??? * Medical History:? Objective: * Vitals:? Assessment: Plan: * Treatment: * Images: * The named appointment provid er may or may not be the originator of this progress note, and it is not deemed complete until electronically signed by the appointment provider. Sign off status: Pending * Provider:?Aditi Lopez DPM Date:?05/2024 Generated for Debby zurita/Connor/Behzad on:?01/29/2025 09:29 AM EDT
--- NOTE | 2025-01-29 09:34 | HO.NEPHOV_ITS ---
Vital Signs 01/29/25 09:36 Height 5 ft 10 in Weight 192 lb BMI 27.5 BP 120/70 Blood Pressure Location Lt brachial Position Sitting Pulse 71 Pulse Source Pulse Oximeter Pulse Oximetry (%) 96 Oxygen Delivery Method Room Air Intake Visit Reasons: CKD-LVM Soap Worker Required: No Accompanied by: Self / Same As Patient Allergies No Known Allergies Allergy (Verified 01/29/25 09:36) HPI Comments Details: Major was seen in follow-up of his hypertension. His blood pressure has been well controlled on current medication regimen. He has gained some weight and his blood sugar is very good. He remains on metformin. He does not take any nonsteroidal anti-inflammatory medications. He tries to remain well hydrated. He denies any dizziness, pedal edema, paroxysmal nocturnal dyspnea, orthopnea or urinary symptoms. He feels well otherwise [facility] Medical History (Updated 07/24/23 @ 11:46 by Sy Delgado MD) Migraines Hypertension Surgical History History of shoulder surgery History of back surgery Family History Mother Hypertension Social History Alcohol intake: former Patient Tobacco Use Status: Former Tobacco user Review of Systems Const All systems reviewed & are unremarkable except as noted in HPI and below Physical Exam Vital Signs: Last Vital Signs Pulse 71 01/29/25 09:36 BP 120/70 01/29/25 09:36 Pulse Ox 96 01/29/25 09:36 Oxygen Delivery Method Room Air 01/29/25 09:36 BMI result Body Mass Index 27.5 Const General: comfortable and no acute distress Orientation/consciousness: patient oriented x3 HEENT Head: Yes normocephalic Mouth: Normal oral and palatal mucosa present Eyes EOM: EOMs intact bilaterally Neck Neck: Yes supple Resp Auscultation: clear to auscultation bilaterally Cardio Jugular venous distension: no JVD Rate: regular rate GI Palpation (GI): Soft to palpation Auscultation: normal bowel sounds General: Yes no CVA tenderness Back/Spine/Pelvis Back: no CVA tenderness Skin General skin exam: no rashes or lesions noted Neuro General: patient oriented x3 and moves all extremities Extrem General: Yes no pedal edema Assessment & Plan Assessment & Plan (1) Hypertension: Code(s): I10 - Essential (primary) hypertension Category: Medical Qualifiers: Hypertension type: primary hypertension Qualified Code(s): I10 - Essential (primary) hypertension Plan Major has hypertension . He is a diabetic. His blood sugars are fairly well controlled on metformin but better. He needs to loose some weight. He remains well hydrated and avoids nonsteroidal anti-inflammatory medications. He could continue lisinopril 10 mg daily. He is not known to have any retinopathy or proteinuria. His volume status is optimal. He should be on a low-sodium diet. He is on statins. I did not make any other changes at this time but had a long conversation about future monitoring and further management strategies. All questions were answered. Orders: Orders Protein Creatinine Ratio, Ur 1 Year I10 - Essential (primary) hypertension Creatinine 1 Year I10 - Essential (primary) hypertension Electrolytes 1 Year I10 - Essential (primary) hypertension Calcium 1 Year I10 - Essential (primary) hypertension Blood Urea Nitrogen 1 Year I10 - Essential (primary) hypertension Medications: Refilled lisinopril 10 mg PO DAILY 90 tabs 4RF 90 days Coding Level of Care Code Est Pt Level 4 (02434) Diagnoses Primary hypertension I10 Hypertension type: primary hypertension
[2025-01-29 09:36] VITALS: BP 120/70; PULSE 71; O2SAT 96; BMI 27.5
== END 2025-01-29 09:58 | disposition home or self-care (01) ==
LOC: HO.HKAS 09:16
PROVIDERS: PCP Family Medicine; Visit Provider Internal Medicine Nephrology
DX: I10 Essential (primary) hypertension (principal)
CPT/HCPCS: 99214